=== PATIENT | female | born 1980 | race Caucasian/White ===

== ENCOUNTER 2018-01-26 08:11 | Day surgery (SDC) | payer OTHER ==
[2018-01-26] MEDS ORDERED: Dextrose 5%-Lactated Ringers 1,000 ML IV SCH (08:45)
[2018-01-26] MEDS ORDERED: Midazolam 1 MG/ML 2 ML SDV ONE (08:48)
[2018-01-26] MEDS ORDERED: Propofol 200 MG/20 ML SDV ONE ×2 (08:48→09:50)
[2018-01-26] MEDS ORDERED: fentaNYL 100 MCG/2 ML SDV ONE (08:48)
[2018-01-26] MEDS ORDERED: Glycopyrrolate 0.2 MG/ML 2 ML SDV IVPUSH ONE (09:15)
[2018-01-26] MEDS ORDERED: Pantoprazole 40 MG Vial IVPUSH ONE (10:04)
--- NOTE | 2018-01-27 10:22 | OR ---
DATE OF PROCEDURE: 01/26/2018 PREOPERATIVE DIAGNOSIS: Epigastric pain with recent gastrointestinal bleeding. POSTOPERATIVE DIAGNOSES: 1. Healing marginal ulcer. 2. Normal colonoscopic examination. OPERATIVE PROCEDURE: 1. Upper GI endoscopy with biopsies of gastric pouch for CLOtest. 2. Flexible colonoscopy. ANESTHESIA: IV sedation. INDICATION FOR PROCEDURE: This is a 37-year-old status post Mónica-en-Y gastric bypass presenting recently with a hemoglobin of 6.5 with some obvious history suggestive of upper GI bleeding. She had received some prednisone presently and has been on omeprazole and generally has been feeling quite a bit better. She received some IV iron as well as a B12 supplementation recently. Her hemoglobin today is up to 12.9 and ferritin and B12 levels are relatively high given the recent supplementation. Plan is to proceed with upper GI endoscopy for diagnostic purposes. Given the significant amount of bleeding, she also will undergo a colonoscopy to rule out any concurrent colon pathology. Potential risks including bleeding and perforation were discussed, and the patient wishes to proceed. DETAILS OF PROCEDURE: The patient was taken to the operating room and placed in the left lateral decubitus position. IV sedation was administered after which the upper GI endoscope was passed orally through the length of the esophagus into the gastric pouch, from there through the gastrojejunostomy, and roughly 20 cm into the Mónica limb. The findings included normal esophagus and EG junction area. The gastric pouch was likewise unremarkable. There was, however, a healing appearing marginal ulcer present within the jejunum, the area adjacent to the gastrojejunostomy. It was covered with a patch of fibrinous exudate. Photo documentation was obtained. The remainder of the visualized Mónica limb was unremarkable. Biopsies were then obtained from the gastric pouch, sent for CLOtest for H. pylori. Minimal bleeding from the biopsy sites was seen and the procedure then concluded. The patient was taken to the recovery room in satisfactory condition. The patient will be continued on the present omeprazole regimen and given also some Protonix 40 mg IV push in the recovery room to increase the indicated intensity of treatment. The patient, following the completion of the upper GI endoscopy, underwent a colonoscopy. Initial digital rectal exam was performed and was unremarkable. Colonoscope was then passed into the rectum with retroflexion view revealing uncomplicated hemorrhoidal columns. Scope was then passed to the level of cecum. The prep was quite good with there being no abnormalities noted. The scope was then withdrawn, the above findings reconfirmed, and the procedure concluded. The patient was taken to the recovery room in satisfactory condition. Jamey Valenzuela MD /[id number]
== END 2018-01-26 11:25 | disposition home or self-care (01) ==
LOC: MERGE 08:11 → JP.SDS 08:11
PROVIDERS: ATTEND Surgery
DX: R10.13 Epigastric pain (principal); K92.2 Gastrointestinal hemorrhage, unspecified; K64.9 Unspecified hemorrhoids; G47.33 Obstructive sleep apnea (adult) (pediatric)
CPT/HCPCS: 36415; 43239; 45378; 81025; 82607; 82728; 85027; 87081; C9113; J2250; J2704; J3010; J3490; J7042